=== PATIENT | male | born 1985 | race Caucasian/White ===

== ENCOUNTER 2018-09-26 14:49 | Emergency (ER) | payer BC ==
[2018-09-26 15:23] VITALS: BP 127/76
--- NOTE | 2018-09-26 16:14 | UC ---
Throat Pain/Nasal Savage HPI - HPI Summary HPI Summary: sore throat , and some nasal drainage for 3 days is concerned as he is going to visit a home with an no fevers - History of Current Complaint Chief Complaint: UCGeneralIllness Stated Complaint: SINUS COMPLAINT Time Seen by Provider: 09/26/18 16:04 Hx Obtained From: Patient Onset/Duration: Sudden Onset, Lasting Days - 3, Still Present Pain Intensity: 1 Pain Scale Used: 0-10 Numeric Cough: None Associated Signs & Symptoms: Positive: Nasal Discharge - Allergies/Home Medications Allergies/Adverse Reactions: Allergies Allergy/AdvReac Type Severity Reaction Status Date / Time MS Clindamycin [Clindamycin] Allergy Severe Rash Verified 09/26/18 15:17 MS Penicillins [Penicillins] Allergy Severe See Comment Verified 09/26/18 15:17 MS Amoxicillin [Amoxicillin] Allergy Unknown Rash Verified 09/26/18 15:17 Home Medications: Home Medications Cetirizine HCl [All Day Allergy] 10 mg PO ONCE 09/26/18 [History Confirmed 09/26] PMH/Surg Hx/FS Hx/Imm Hx Previously Healthy: Yes - Surgical History Surgical History: None - Family History Known Family History: Positive: None - Social History Occupation: Employed Full-time Lives: With Family Alcohol Use: Occasionally Substance Use Type: None Smoking Status (MU): Current Every Day Smoker Type: Cigarettes Amount Used/How Often: 1 PACK PER WEEK Length of Time of Smoking/Using Tobacco: 5+ YEARS Have You Smoked in the Last Year: Yes Review of Systems All Other Systems Reviewed And Are Negative: Yes Constitutional: Positive: Negative Skin: Positive: Negative Eyes: Positive: Negative ENT: Positive: Sore Throat, Nasal Discharge Respiratory: Positive: Negative Cardiovascular: Positive: Negative Gastrointestinal: Positive: Negative Genitourinary: Positive: Negative Motor: Positive: Negative Neurovascular: Positive: Negative Musculoskeletal: Positive: Negative Neurological: Positive: Negative Psychological: Positive: Negative Is Patient Immunocompromised?: No Physical Exam Triage Information Reviewed: Yes Appearance: Well-Appearing, No Pain Distress, Well-Nourished Vital Signs: Initial Vital Signs Temp 99 F 09/26/18 15:18 Pulse 63 09/26/18 15:18 Resp 18 09/26/18 15:18 BP 127/76 09/26/18 15:18 Pulse Ox 100 09/26/18 15:18 Vital Signs Reviewed: Yes Eye Exam: Normal Eyes: Positive: Conjunctiva Clear ENT Exam: Normal ENT: Positive: Normal ENT inspection, Hearing grossly normal, Pharynx normal, Nasal congestion, Nasal drainage, TMs normal, Uvula midline. Negative: Trismus , Muffled voice, Hoarse voice, Dental tenderness, Sinus tenderness Dental Exam: Normal Neck exam: Normal Neck: Positive: Supple, Nontender, No Lymphadenopathy Respiratory Exam: Normal Respiratory: Positive: Chest non-tender, Lungs clear, Normal breath sounds, No respiratory distress, No accessory muscle use Cardiovascular Exam: Normal Cardiovascular: Positive: RRR, No Murmur, Pulses Normal, Brisk Capillary Refill Musculoskeletal Exam: Normal Musculoskeletal: Positive: Strength Intact, ROM Intact, No Edema Neurological Exam: Normal Neurological: Positive: Alert, Muscle Tone Normal Psychological Exam: Normal Skin Exam: Normal Diagnostics - Laboratory Diagnostic Studies Completed/Ordered: rst (-) Throat Pain/Nasal Course/Dx - Course Assessment/Plan: increase fluids, tylenol, ibuprofen otc symptom relief flonase nasal sray for nasal drip and congestion - Differential Dx/Diagnosis Provider Diagnosis: Nasal congestion with rhinorrhea, Viral upper respiratory illness Discharge - Sign-Out/Discharge Documenting (check all that apply): Patient Departure All imaging exams completed and their final reports reviewed: No Studies - Discharge Plan Condition: Stable Disposition: HOME Prescriptions: Fluticasone NASAL SPRAY 50MCG* [Flonase NASAL SPRAY 50MCG*] 2 spray BOTH NARES DAILY #1 btl Patient Education Materials: Upper Respiratory Infection (ED), Viral Syndrome ( ED) Referrals: [facility] [Outside] - If Needed - Billing Disposition and Condition Condition: STABLE Disposition: Home
== END 2018-09-26 16:40 | disposition home or self-care (01) ==
LOC: UCEAST 14:49
DX: J06.9 Acute upper respiratory infection, unspecified (principal); J34.89 Other specified disorders of nose and nasal sinuses; Z88.1 Allergy status to other antibiotic agents; Z88.0 Allergy status to penicillin; F17.210 Nicotine dependence, cigarettes, uncomplicated
CPT/HCPCS: 87651; 99202; G0463

== ENCOUNTER 2018-12-08 12:17 | Emergency (ER) | payer BC ==
[2018-12-08 12:46] VITALS: BP 133/65
--- NOTE | 2018-12-08 13:34 | UC ---
Abdominal Pain Male HPI - HPI Summary HPI Summary: 33-year-old male presents with 3 day history of lower abdominal pain that occurs immediately before during urination. Describes pain as sharp. States occasionally radiates to his left testicle. Associated with urinary frequency and occasional nausea. Denies fever, chills, vomiting, diarrhea, urgency, hematuria, penile discharge, testicular or scrotal swelling. - History of Current Complaint Chief Complaint: UCGU Stated Complaint: POSS UTI Time Seen by Provider: 12/08/18 13:14 Hx Obtained From: Patient Pain Intensity: 3 - Allergies/Home Medications Allergies/Adverse Reactions: Allergies Allergy/AdvReac Type Severity Reaction Status Date / Time amoxicillin Allergy Rash Verified 12/08/18 13:16 clindamycin Allergy Rash Verified 12/08/18 13:16 Penicillins Allergy See Comment Verified 12/08/18 13:16 Home Medications: Home Medications NK [No Home Medications Reported] 12/08/18 [History Confirmed 12/08/18] PMH/Surg Hx/FS Hx/Imm Hx Previously Healthy: Yes - Denies significant PMH - Surgical History Surgical History: None - Family History Family History: Kidney stones - father - Social History Occupation: Employed Full-time Lives: With Family Alcohol Use: Occasionally Substance Use Type: None Smoking Status (MU): Current Every Day Smoker Type: Cigarettes Amount Used/How Often: pt is starting to quit, and has lowered his amount Length of Time of Smoking/Using Tobacco: 5+ YEARS Have You Smoked in the Last Year: Yes Review of Systems All Other Systems Reviewed And Are Negative: Yes Constitutional: Negative: Fever, Chills Skin: Negative: Rash Respiratory: Positive: Negative Cardiovascular: Positive: Negative Gastrointestinal: Positive: Abdominal Pain. Negative: Vomiting, Diarrhea, Nausea Genitourinary: Positive: Dysuria, Frequency. Negative: Hematuria, Urgency, Vaginal/Penile Discharge, Ulceration/Lesion Musculoskeletal: Positive: Negative Neurological: Positive: Negative Physical Exam - Summary Physical Exam Summary: GENERAL APPEARANCE: Well developed, well nourished, alert and cooperative, and appears to be in no acute distress. CARDIAC: Normal S1 and S2. No S3, S4 or murmurs. Rhythm is regular. There is no peripheral edema, cyanosis or pallor. Extremities are warm and well perfused. Capillary refill is less than 2 seconds. LUNGS: Clear to auscultation without rales, rhonchi, wheezing or diminished breath sounds. ABDOMEN: Positive bowel sounds. Soft, nondistended. Mild LLQ tenderness with palpation. No guarding or rebound. No masses or hepatosplenomegally. No CVA tenderness. GENITALIA: Normal penis. Meatus without erythema or discharge. No scrotal swelling. Testicles smooth and non-tender without masses. No evidence of inguinal hernia. MUSKULOSKELETAL: ROM intact to all extremities. No joint erythema or tenderness. Normal muscular development. Normal gait. SKIN: Skin normal color, texture and turgor with no lesions or eruptions. Triage Information Reviewed: Yes Vital Signs: Initial Vital Signs Temp 98.0 F 12/08/18 12:42 Pulse 54 12/08/18 12:42 Resp 18 12/08/18 12:42 BP 133/65 12/08/18 12:42 Pulse Ox 100 12/08/18 12:42 Vital Signs Reviewed: Yes Diagnostics - Laboratory Diagnostic Studies Completed/Ordered: POC UA negative. Abd Pain Male Course/Dx - Course Course Of Treatment: 33-year-old male presents with 3 day history of lower abdominal pain that occurs immediately before during urination. Describes pain as sharp. States occasionally radiates to his left testicle. Associated with urinary frequency and occasional nausea. Denies fever, chills, vomiting, diarrhea, urgency, hematuria, penile discharge, testicular or scrotal swelling. Afebrile. Vital signs stable. Exam reveals an adult male in no acute distress with mild left lower quadrant tenderness without rebound or guarding and otherwise unremarkable. [id number] UA was normal. Discussed with patient that based on the urine results it is unlikely his symptoms are from an acute infection ever the pain may still be related to a kidney stone despite the absence of blood in the urine. We discussed treatment options including obtaining a CT to rule out kidney stone versus watchful waiting and patient is electing for watchful waiting at this time. Recommending that he push fluids and use [id number] ibuprofen as needed for pain. Anticipatory guidance and warning symptoms were reviewed with the patient. He verbalizes understanding and agrees with plan of care. - Differential Dx/Clinical Impression Differential Diagnosis/HQI/PQRI: Constipation, Diverticulitis, Renal Colic, Ureteral Stone, Urinary Tract Infection Provider Diagnosis: Lower abdominal pain Discharge - Sign-Out/Discharge Documenting (check all that apply): Patient Departure All imaging exams completed and their final reports reviewed: No Studies - Discharge Plan Condition: Stable Disposition: HOME Patient Education Materials: Abdominal Pain (ED) Referrals: No Primary Care Phys,NOPCP [Primary Care Provider] - Additional Instructions: The urine test performed in the clinic today was normal. Based on your symptoms and exam I cannot fully rule out the possibility of a kidney stone however as we discussed I think it is reasonable to do some watchful waiting at this time. Push fluids. Take ibuprofen 600 mg every 8 hours as needed for pain. Return here or follow up with primary care in 5-7 days if symptoms do not improve. It was noted sure blood pressure was slightly elevated today. It is recommended that you follow up with primary care and have this rechecked. I have given you the number for the [facility] physician referral service if you need assistance with establishing with a provider. Seek immediate medical attention in the emergency room if you develop a fever greater than 100.5 F, have worsening abdominal pain despite taking pain medication, develop nausea or vomiting, pain or swelling of the testicle, or any worsening of symptoms. - Billing Disposition and Condition Condition: STABLE Disposition: Home
== END 2018-12-08 13:35 | disposition home or self-care (01) ==
LOC: UCEAST 12:17
DX: R10.32 Left lower quadrant pain (principal); R35.0 Frequency of micturition; R11.0 Nausea; F17.210 Nicotine dependence, cigarettes, uncomplicated; Z88.0 Allergy status to penicillin; Z88.1 Allergy status to other antibiotic agents
CPT/HCPCS: 81003; 99212; G0463